=== PATIENT | male | born 1995 | race Caucasian/White ===

== ENCOUNTER 2019-02-11 11:49 | Emergency (ER) | payer OTHER ==
[~2019-02-11] VITALS: Ht 188 cm; Wt 70.3 kg
[2019-02-11 12:02] VITALS: BP 141/71
--- NOTE | 2019-02-11 12:04 | NUR ---
PT AMBULATED TO ER BED 04
--- NOTE | 2019-02-11 12:22 | NUR ---
23/M TO ED FOR RT TETSTICULAR PAIN. DENIES ANY RECENT INJURY/TRAUMA TO GROIN. DENIES URINARY DISCOMFORT OR COMPLICATIONS. PT STATES "MY SEMEN HAS CHANGED COLOR TO MORE OF A YELLOW TINGE" IN BED FOR MD TIDWELL. NO DISTRESS.
[2019-02-11] MEDS ORDERED: NACL 0.9% 1,000 ML IV SCH (12:44)
[2019-02-11] MEDS ORDERED: cefTRIAXone 1,000 MG in DEXT 5% MINI-BAG PLUS 50 ML IV ONE (12:45)
[2019-02-11] MEDS ORDERED: KETOROLAC 30 MG/ML VIAL IVP ONE (12:45)
[2019-02-11] MEDS ORDERED: LEVOFLOXACIN 500 MG TAB PO ONE (12:45)
--- NOTE | 2019-02-11 13:05 | NUR ---
pt amb to restroom with steady gait
[2019-02-11] MEDS ORDERED: cefTRIAXone 1,000 MG VIAL ONE (13:10)
--- NOTE | 2019-02-11 13:10 | NUR ---
iv inserted and medications administered pt tolerated well
[2019-02-11 13:30] LABS: BASOPHILS % (AUTO) 0.3 % (0.0-2.0); EOSINOPHILS % (AUTO) 0.2 % (0.0-4.0); HEMATOCRIT 43.5 % (36-52); HEMOGLOBIN 14.4 g/dL (12.0-18.0); LYMPHOCYTES # (AUTO) 1.7 K/uL (2.0-11.5); LYMPHOCYTES % (AUTO) 13.3 % (20.5-51.1); MEAN CORPUSCULAR HEMOGLOBIN 31 pg (27-31); MEAN CORPUSCULAR HGB CONC 33 g/dL (33-37); MEAN CORPUSCULAR VOLUME 93.7 fL (80-94); MONOCYTES # (AUTO) 0.8 K/uL (0.8-1.0); MONOCYTES % (AUTO) 6.3 % (1.7-9.3); NEUTROPHILS # (AUTO) 10.5 K/uL (1.8-7.7); NEUTROPHILS % (AUTO) 79.9 % (42.2-75.2); PLATELET COUNT (AUTO) 192 K/uL (140-450); RED BLOOD CELL COUNT(AUTO) 4.64 MIL/uL (4.20-6.10); RED CELL DISTRIBUTION WIDTH 12.4 % (11.6-13.7); WHITE BLOOD COUNT (AUTO) 13.2 K/uL (4.8-10.8)
--- NOTE | 2019-02-11 13:32 | NUR ---
us at bedside
--- NOTE | 2019-02-11 14:42 | NUR ---
VS STABLE, PATIENT PENDING ULTRASOUND RESULTS.
[2019-02-11 14:50] LABS: APPEARANCE,URINE CLEAR (CLEAR); BILIRUBIN,URINE NEGATIVE (NEGATIVE); BLOOD, URINE TRACE-I (NEGATIVE); COLOR,URINE YELLOW (YELLOW); LEUKOCYTE ESTERASE ,URINE 2+ (NEGATIVE); NITRITE, URINE NEGATIVE (NEGATIVE); PH,URINE 7.5 (5.0-9.0); UGLUCOSE NEGATIVE (NEGATIVE)
[2019-02-11 15:19] LABS: RBC,URINE 0-5 /HPF (0-5)
[2019-02-11 15:37] VITALS: BP 130/63
--- NOTE | 2019-02-11 15:37 | NUR ---
IV removed, catheter intact and site benign. Applied folded 4x4 gauze and tape to stop bleeding.
--- NOTE | 2019-02-11 15:37 | NUR ---
Patient discharged with v/s stable. Written and verbal after care instructions given and explained. Patient alert, oriented and verbalized understanding of instructions. Ambulatory with steady gait. All questions addressed prior to discharge. ID band removed. Patient advised to follow up with PMD. Rx of FIORECT, LEVAQUIN given. Patient educated on indication of medication including possible reaction and side effects. Opportunity to ask questions provided and answered.
[2019-02-11 15:55] LABS: ANION GAP 14.4 (8-16); CARBON DIOXIDE 25.7 mmol/L (21-32); POTASSIUM 4.1 mmol/L (3.5-5.1)
[2019-02-11 15:56] LABS: ALBUMIN 3.7 g/dL (3.4-5.0); CREATININE 0.8 mg/dL (0.7-1.3); TOTAL BILIRUBIN 0.7 mg/dL (0.0-1.0)
== END 2019-02-11 15:37 | disposition home or self-care (01) ==
LOC: MED 11:49
DX: N45.1 Epididymitis (principal)
CPT/HCPCS: 36415; 76870; 80053; 81001; 82150; 83690; 85025; 87086; 96365; 96375; 99284; J0696; J1885; J7030; Q0092